=== PATIENT | female | born 1995 | race Caucasian/White ===

== ENCOUNTER 2021-05-17 20:07 | Emergency (ER) | payer OTHER ==
[~2021-05-17] VITALS: Ht 149.9 cm; Wt 54.4 kg
[~2021-05-17 20:07] MED LIST: LOESTRIN1 EACH PO; ZOLOFT25 MG PO
[2021-05-17] MEDS ORDERED: XANAX 0.25 MG0.25 MG PO (20:11)
[2021-05-17 23:58] VITALS: BP 123/68
== END 2021-05-17 23:59 | disposition home or self-care (01) ==
LOC: M.ERS 20:07
DX: T50.905A Adverse effect of unspecified drugs, medicaments and biological substances, initial encounter (principal); G43.909 Migraine, unspecified, not intractable, without status migrainosus; Z79.899 Other long term (current) drug therapy; Z91.040 Latex allergy status; Y92.89 Other specified places as the place of occurrence of the external cause